=== PATIENT | female | born 1970 | race Caucasian/White ===

== ENCOUNTER → 2023-07-28 | Outpatient (CLI) | payer OTHER, SELFPAY ==
--- OUTSIDE RECORDS SUMMARY | 2023-07-28 14:58 | XMS RPT_ITS | CCD ---
Author Name Unknown Address [address] [place] [address] Organization [facility] Care Team Providers Care Lifter Driver Name Role Phone Alejandro Myles Unavailable Unavailable Vaccariello, Prudence Toth Unavailable Unavailable Shameka, Alejandro Munoz Unavailable Unavailable Unavailable, Family Physician Unavailable Un available Unavailable, Family Physician Unavailable Un available Shameka, Alejandro Munoz Unavailable Unavailable Shameka, Alejandro Munoz Unavailable Unavailable Unavailable, Family Physician Unavailable Un available Unavailable, Family Physician Unavailable Un available MONICA, ARIANNA T Admitting Unavailable MONICA, ARIANNA Harvey Primary Care Unavailable MONICA, ARIANNA Harvey Attending Unavailable VACCARIELLO, PRUDENCE Consulting Unavailable PROVIDER, UNKNOWN Consulting Unavailable PROVIDER, UNKNOWN Consulting Unavailable PROVIDER, UNKNOWN Consulting Unavailable MONICA, ARIANNA T Admitting Unavailable MONICA, ARIANNA T Primary Care Unavailable MONICA, ARIANNA T Attending Unavailable VACCARIELLO, PRUDENCE Consulting Unavailable PROVIDER, UNKNOWN Consulting Unavailable PROVIDER, UNKNOWN Consulting Unavailable PROVIDER, UNKNOWN Consulting Unavailable VACCARIELLO, PRUDENCE Admitting Unavailable VACCARIELLO, PRUDENCE Primary Care Unavailable VACCARIELLO, PRUDENCE Consulting Unavailable VACCARIELLO, PRUDENCE Attending Unavailable PROVIDER, UNKNOWN Consulting Unavailable PROVIDER, UNKNOWN Consulting Unavailable PROVIDER, UNKNOWN Consulting Unavailable Unavailable Primary Care Provider Unavailabl e Medications Completed/Discontinued Medications Medication Drug Class(es) Dates Sig (Normalized) Sig (Original) COMPOUNDED PRESCRIPTION (4 sources) COMPOUNDED PRESC RIPTION 1 additional medication for blood pressure. states does not know name of med or remember dosage 0 Active Problems Active Problems Problem Classification Problem Date Documented Da te Episodic/Chronic Nonmalignant breast conditions (2 sources) Fibrocystic changes of bilateral breasts; Translations: [Diffuse cystic mastopathy of right breast] Onset: 10-13-2015 10-13-2015 Chronic Unclassified (1 source) Unknown / UNK(Unknown) Onset: 01-19-2018 Past or Other Problems Problem Classification Problem Date Documented Da te Episodic/Chronic Nonmalignant breast conditions (4 sources) Cyst of breast; Translations: [Solitary cyst of unspecified breast] Onset: 10-13-2015 10-13-2015 Episodic Other screening for suspected conditions (not mental disorders or infectious disease) (1 source) Encounter for screening for malignant neoplasm of colon; Translations: [Encounter for screening for malignant neoplasm of colon] Onset: 09-17-2021 Episodic Unclassified (1 source) M48.062~ Onset: 01-19-2018 Results Test Name Value Interpretation Reference Range Facil ity Encounters Encounter Date Encounter Type Care Provider Facility Start: 06-26-2023 Documentation procedure Mammog dalila Coordinator [facility] Start: 06-26-2023 Letter encounter Mammography Coordinator [facility] Department Start: 06-23-2023 End: 06-23-2023 ambulatory Facility:[facility] Start: 06-23-2023 End: 06-23-2023 Subsequent hospital visit by physician Screen Mammo [facility] Start: 01-28-2022 End: 01-28-2022 ambulatory [facility] Start: 09-17-2021 End: 09-17-2021 ambulatory [facility] Start: 06-30-2021 End: 06-30-2021 ambulatory [facility] Start: 03-05-2018 End: 03-06-2018 Evaluation and management of inpatient Alejandro Myles Facility:[facility] Start: 03-05-2018 Patient encounter Facil [id number] Start: 02-22-2018 Patient encounter Alejandro Myles Facility:[facility] Start: 01-19-2018 Ambulatory Alejandro Myles Facility:[facility] Plan of Treatment Date Care Activity Detail Author Start: 06-23-2024 Screening for malign ant neoplasm of breast Mammogram Screening [facility] Start: 07-17-2022 Depression Assessment Depression Ass essment [facility] Start: 03-03-2020 Urine microalbumin profile DTa P,Tdap,Td Vaccine (3 - Td or Tdap) [facility] Start: 04-13-2019 Mammography Mammogram Screening [facility] Start: 2015 Cologuard (FIT-DNA) Cologuard (FIT-D NA) [facility] Start: 2015 Colonoscopy Colonoscopy [facility] Start: 2015 Colorectal Cancer Screening Colorectal Cancer Screening [facility] Start: [address] Colonography [facility] Start: 2015 Diabetes Screening Diabetes Screenin g [facility] Start: 2015 Fecal Occult Blood Fecal Occult Bloo d [facility] Start: 2015 Lipid 1996 panel - S gera or Plasma Lipid Screening [facility] Start: 2015 Lipid panel Lipid Screening [facility] Start: 2015 Screening for malign ant neoplasm of colon [facility] Start: 2015 Sigmoidoscopy Sigmoidoscopy [facility] Start: 2000 HPV Testing HPV Testing [facility] Start: 2000 Screening for malign ant neoplasm of cervix HPV Testing [facility] Start: 1991 Pap Testing Pap Testing [facility] Start: 1991 Screening for malign ant neoplasm of cervix Pap Testing [facility] Start: 1988 Hepatitis C Screening Hepatitis C [facility] Start: 1988 Hepatitis C screening Hepatitis C [facility] Start: 1988 HIV Screening HIV Screening [facility] Start: 1988 HIV screening HIV Screening [facility] Start: 1970 Hepatitis B Vaccine (1 of 3 - 3-dose series) Hepatitis B Vaccine (1 of 3 - 3-dose series) [facility] Payers Date Payer Category Payer Unknown [id number] 2022 Unknown [employer] PPO [id number] 2022-Present [phone] [address] [place] [address] PPO [id number] 2008 Unknown [id number] 1970 Unknown [id number] 1970 Unknown [id number] 1970 Unknown [id number] Unknown [id number] Social History Date Type Detail Facility Start: 10-13-2015 Tobacco smoking stat us NHIS Ex-smoker [facility] History of tobacco use Current smoker [facility] Start: 10-13-2015 Alcohol intake Current drinke r of alcohol (finding) [facility] Start: 10-13-2015 Alcohol Comment [facility] Start: [facility] Sex Assigned At Not on file [facility] Gender identity Not on file [facility] inic Note 06-26-2023 Letter - Coordinator, Mammography - 06/26/2023 8:29 AM EST Note Date & Type Note Facility 06-26-2023 Miscellaneous Notes Formattin g of this note might be different from the original. June 26, 2023 PID: [id number] Lina Wray [address] [place] [address] Dear Ms. Wray, We are pleased to inform you that the results of your recent breast imaging exam on 06/23/2023 are normal. Your mammogram demonstrates that you have dense breast tissue, which could hide abnormalities. Dense breast tissue, in and of itself, is a relatively common condition. Therefore, this information is not provided to cause undue concern; rather, it is to raise your awareness and promote discussion with your health care provider regarding the presence of dense breast tissue in addition to other risk factors. Early detection of cancer is very important. We also understand recommendations regarding breast cancer screening are controversial. Please discuss with your primary care provider which strategy is best for you and whether a mammogram is right for you. Your imaging studies and report will be kept on file at [facility] as part of your permanent medical record and are available for your continuing care. Thank you for allowing us to help in meeting your health care needs. Sincerely, Dr. East Interpreting Radiologist [facility] (Normal over 40) documented in this encounter [facility] Summary Purpose Family History No Family History Records FoundNo Family History Records FoundNo Family History Records FoundNo Family History Records FoundNo Family History Records FoundNo Family History Records FoundNo Family History Records FoundNo Family History Records Found Advance Directives No Advanced Directives Records FoundNo Advanced Directives Records FoundNo Advanced Directives Records FoundNo Advanced Directives Records FoundNo Advanced Directives Records FoundNo Advanced Directives Records FoundNo Advanced Directives Records FoundNo Advanced Directives Records Found Additional Source Comments INFORMATION SOURCE (unrecogn ized section and content) DATE CREATED AUTHOR AUTHOR'S ORGANIZ ATION 03/09/2018 [facility] DATE CREATED AUTHOR AUTHOR'S ORGANIZ ATION 04/08/2018 [facility] DATE CREATED AUTHOR AUTHOR'S ORGANIZ ATION 07/02/2021 [facility] DATE CREATED AUTHOR AUTHOR'S ORGANIZ ATION 02/04/2022 [facility] ([place]) DATE CREATED AUTHOR AUTHOR'S ORGANIZ ATION 02/19/2022 [facility] DATE CREATED AUTHOR AUTHOR'S ORGANIZ ATION 05/02/2023 [facility] DATE CREATED AUTHOR AUTHOR'S ORGANIZ ATION 06/30/2023 [facility] Source Comments (unrecognize d section and content) In the event this informatio n is protected by the Federal Confidentiality of Alcohol and Drug Abuse Patient Records regulations: The Federal rules restrict any use of the information to criminally investigate or prosecute any alcohol or drug abuse patient.[facility] the event this information is protected by the Federal Confidentiality of Alcohol and Drug Abuse Patient Records regulations: The Federal rules restrict any use of the information to criminally investigate or prosecute any alcohol or drug abuse patient.[facility] FOR RECORDS PERTAINING TO PATIENTS WHO ARE OR HAVE BEEN ENROLLED IN A CHEMICAL DEPENDENCY/SUBSTANCEABUSE PROGRAM, SOME INFORMATION MAY BE OMITTED. This clinical summary was aggregated from multiple sources. Caution should be exercised in using it in the provision of clinical care. This summary normalizes information from multiple sources, and as a consequence, information in this document may materially change the coding, format and clinical context of patient data. In addition, data may be omitted in some cases. CLINICAL DECISIONS SHOULD BE BASED ON THE PRIMARY CLINICAL RECORDS. [facility]. provides no warranty or guarantee of the accuracy or completeness of information in this document.
[2023-07-31 12:11] LABS: QNTFERON TB Mitogen Value > 10.00 IU/mL (.); QNTFERON TB Nil Value 0.02 IU/mL (.); QNTFERON TB1+ Ag Value 0.03 IU/mL (.); QNTFERON TB2+ Ag Value 0.03 IU/mL (.); QNTIFERON TB Positive Criteria Negative (Negative)
== END | disposition home or self-care (01) ==
LOC: MTLAB 13:40
PROVIDERS: PCP Family Medicine; Referring Provider Physician Assistant Medical; Visit Provider Physician Assistant Medical
DX: L40.0 Psoriasis vulgaris (principal); Z79.899 Other long term (current) drug therapy
CPT/HCPCS: 36415; 86480

== ENCOUNTER → 2024-06-21 | Outpatient (CLI) | payer OTHER, SELFPAY ==
[2024-06-25 12:09] LABS: QNTFERON TB Mitogen Value > 10.00 IU/mL (.); QNTFERON TB Nil Value 0 IU/mL (.); QNTFERON TB1+ Ag Value 0 IU/mL (.); QNTFERON TB2+ Ag Value 0 IU/mL (.); QNTIFERON TB Positive Criteria Negative (Negative)
== END | disposition home or self-care (01) ==
LOC: MTLAB 11:39
PROVIDERS: PCP Family Medicine; Referring Provider Physician Assistant Medical; Visit Provider Physician Assistant Medical
DX: L71.8 Other rosacea (principal); L60.8 Other nail disorders; L40.0 Psoriasis vulgaris; T49.0X5A Adverse effect of local antifungal, anti-infective and anti-inflammatory drugs, initial encounter; Z79.899 Other long term (current) drug therapy
CPT/HCPCS: 36415; 86480